=== PATIENT | male | born 1980 | race Caucasian/White ===

== ENCOUNTER 2016-12-26 13:28 | Emergency (ER) | payer OTHER ==
[~2016-12-26] VITALS: Ht 175.3 cm; Wt 75.0 kg
[2016-12-26 13:30] VITALS: Ht 175.3 cm; Wt 75.0 kg
[2016-12-26] MEDS ORDERED: LORAZEPAM 1 MG TAB PO ONE (13:30)
--- NOTE | 2016-12-26 13:50 | ERD ---
ER Documentation Chief Complaint Date/Time DATE: 12/26/16 TIME: 13:45 Chief Complaint BIB [facility] FOR CLEARANCE FOR BOOKING. C/O CHEST DISCOMFORT HPI This is a 36-year-old male with a known history of alcohol abuse. The patient was brought in by [facility] for medical clearance. The patient indicates his last consumption of alcohol was roughly 12 hours prior to arrival. He states he is feeling palpitations and shakiness and denies any history of alcohol withdrawal seizures. The patient indicates he is also experiencing a mild chest discomfort that is bilateral, exacerbated by movement, with no shortness of breath or pleuritic chest pain. He also denies any chest pressure that radiates to the neck arm back or jaw. He denies any blunt or penetrating chest wall trauma. He denies a productive or nonproductive cough. He has had no fevers or shaking or chills. He denies any night sweats or weight loss. He denies any hemoptysis hematemesis or melanotic stools. He denies a headache or changes in vision ROS All systems reviewed and are negative except as per history of present illness. Medications Home Meds No Active Prescriptions or Reported Meds Allergies Allergies: Coded Allergies: No Known Allergy (Unverified , 12/26/16) Physical Exam Vitals Vital Signs Date Time Temp Pulse Resp B/P Pulse Ox O2 Delivery O2 Flow Rate FiO2 12/26/16 13:30 97.7 70 18 173/113 99 Physical Exam Constitutional:Well-developed. Well-nourished. HEENT:Normocephalic. Atraumatic.Pupils were equal round reactive to light. Moist mucous membranes.No tonsillar exudates. No nasal septal hematoma. No hemotympanum. Neck: No nuchal rigidity. No lymphadenopathy. No posterior cervical spine tenderness or step-offs. Respiratory: Not using accessory muscles of respiration.Lungs were clear to auscultation bilaterally. No rhonchi. No rales. No wheezing. Cardiovascular: Regular rate regular rhythm.No murmurs. No rubs were appreciated.S1, S2 normal. Distal pulses are palpable 2+ bilaterally. Reproducible bilateral chest wall tenderness with no crepitus no ecchymosis no flail chest GI: Abdomen was soft. Nontender. Non Distended. No pulsatile abdominal masses or bruits. No rebound. No guarding. Bowel sounds were present and normal. Muscle skeletal: Full range of motion of both the upper and lower extremities bilaterally.Normal muscle tone.No assymetrical calf tenderness or swelling. Skin: No petechia, no purpura. No lesions on the palms or the soles of the feet. No maculopapular rash. NEURO: Patient was alert, awake, orientated x3.No facial droop. Gait observed and normal with no ataxia.Speech had regular rate and rhythm. No focal neurological deficits. No asterixis Results 24 hrs Current Medications Medications (Trade) Dose Ordered Sig/Milagros Route PRN Reason Start Time Stop Time Status Last Admin Dose Admin Lorazepam (Ativan) 1 mg ONCE ONCE PO 12/26/16 13:30 12/26/16 13:33 DC 12/26/16 14:00 Chlordiazepoxide (Librium) 50 mg ONCE ONCE PO 12/26/16 14:00 12/26/16 14:02 DC 12/26/16 14:30 Procedures/MDM The patient presented to the emergency department complaining of chest pain and concerns for alcohol withdrawal. My clinical evaluation and workup was to distinguish minor causes of chest pain from acute life threatening cardiopulmonary causes such as myocardial infarction, pulmonary embolism, aortic dissection, esophageal rupture, cardiac tamponade, tuberculosis. The patient was given 1 mg of Ativan p.o. and p.o. Librium for a longer acting benzodiazepine to prevent alcohol withdrawal symptoms. There was no physical exam findings to suggest impending delirium tremors. The patient denies any other illicit drug use. He was very compliant during physical exam and denied any suicidal homicidal thoughts or ideations 12 Lead EKG tracing ordered and reviewed by myself showed: Normal sinus rhythm of 61 bpm and no arrhythmia. WA interval normal. QRS duration normal. No ST segment elevation No ST segment depression. No changes consistent with acute ischemia. The patients chest pain was reproduced by palpation and horizontal flexion of the arms. It was my clinical impression that the pain was a result of inflammation of the skin and subcutaneous structures of the chest wall versus myocardial ischemia. I felt the patient had low-risk chest pain and could therefore be safely discharged with close follow-up. The patient was medically cleared at this time for myself for long term clearance. The patient was discharged home in fair condition. They were instructed to return to the emergency department at any time if there was any worsening of their condition. The patient stated they would follow up with their PCP in the next 24-48 hours to initiate a suitable medication regimen under the care of their PCP as well as to allow their PCP to monitor any drug reactions. The patient was discharged home with prescriptions after they gave informed consent to the new medication. They were also fully informed by myself on the adverse effects and adverse drug interactions in order to provide adequate safeguards to prevent possible adverse reactions to medications. Departure Diagnosis: Primary Impression: Alcohol withdrawal Complication of substance-induced condition: uncomplicated Qualified Code: F10.230 - Alcohol withdrawal, uncomplicated Additional Impression: Costochondral chest pain Condition: Fair RAINA HUYNH Dec 26, 2016 13:49
[2016-12-26] MEDS ORDERED: CHLORDIAZEPOXIDE 25 MG CAP PO ONE (14:00)
== END 2016-12-26 15:25 | disposition home or self-care (01) ==
LOC: E/R 13:28
DX: F10.230 Alcohol dependence with withdrawal, uncomplicated (principal); R40.2252 Coma scale, best verbal response, oriented, at arrival to emergency department; R07.1 Chest pain on breathing
CPT/HCPCS: 93005